=== PATIENT | female | born 1990 | race Caucasian/White ===

== ENCOUNTER 2017-01-26 21:16 | Emergency (ER) | payer MEDICAID ==
[2017-01-26 21:21] VITALS: RESP 18; TEMP 99
[2017-01-26 21:57] LABS: PLATELET COUNT 172 10^3/uL (150-400)
--- NOTE | 2017-01-26 22:30 | EDPHY ---
H & P Stated Complaint: DX WITH UTI ON ABX 3 DAYS NOT BETTER - Personal History LMP (Females 10-55): 8-14 Days Ago Current Tetanus/Diphtheria Vaccine: Unsure Current Tetanus Diphtheria and Acellular Pertussis (TDAP): Unsure - Medical/Surgical History Hx Asthma: No Hx Chronic Respiratory Disease: No Hx Diabetes: No Hx Cardiac Disease: No Hx Renal Disease: No Hx Cirrhosis: No Hx Alcoholism: No Hx HIV/AIDS: No Hx Splenectomy or Spleen Trauma: No Other PMH: lyme disease, - Social History Smoking Status: Never smoked <Edison Bhatia - Last Filed: 01/26/17 22:47> <Rajwinder Hernandez - Last Filed: 01/27/17 05:08> Time Seen by Provider: 01/26/17 21:26 HPI/ROS: Chief Complaint: Abdominal pain HPI: 26-year-old was diagnosed with urinary tract infection by her OBGYN 2 days ago. She was started on nitrofurantoin for this. She was diagnosed with symptoms of urinary urgency and frequency. Yesterday she started having worsening generalized abdominal pain with occasional sharp stabbing pains. The pain got worse today and is now worse in the lower abdomen. No nausea or vomiting. No diarrhea. No fevers or chills. Last menstrual period was 2 weeks ago. She does not believe she is . She has never been in the past. No history of sexually transmitted infections in the past. She has not had any constipation. No abnormal vaginal discharge. ROS: 10 point Review of Systems is negative except as noted in the HPI. PMH: None Social History: No smoking, occasional alcohol, occasional cannabinoids Family History: non-contributory Physical Exam: Gen: Awake, Alert, No Distress HEENT: Nose: no rhinorrhea Eyes: PERRLA, EOMI Mouth: Moist mucosa Neck: Supple, no JVD Chest: nontender, lungs clear to auscultation Heart: S1, S2 normal, no murmur Abd: Soft, moderate right lower quadrant tenderness with guarding, no rebound, no adnexal tenderness bilaterally, Back: no CVA tenderness, no midline tenderness Ext: no edema, non-tender Skin: no rash Neuro: CN II-XII intact, Sensation grossly intact, Strength 5/5 in bilateral upper and lower extremities (Edison Bhatia) Constitutional: Initial Vital Signs Temperature (C) 37.2 C 01/26/17 21:19 Heart Rate 97 01/26/17 21:19 Respiratory Rate 18 01/26/17 21:19 Blood Pressure 96/62 L 01/26/17 21:19 O2 Sat (%) 98 01/26/17 21:19 O2 Delivery Mode Room Air Allergies/Adverse Reactions: No Known Allergies Allergy (Verified 01/26/17 21:21) Home Medications: Medication Instructions Recorded Nitrofurantoin Monohyd/M-Cryst 100 mg PO 01/26/17 [Macrobid 100 mg Capsule] Urine Leukocyte Test Strips [Azo] 1 each MC 01/26/17 Medical Decision Making <Edison Bhatia - Last Filed: 01/26/17 22:47> - Diagnostics Imaging: Discussed imaging studies w/ call or contact centre team leader Radiologist <Rajwinder Hernandez - Last Filed: 01/27/17 05:08> - Diagnostics Imaging Results: Imaging Impressions Abdomen Ultrasound 01/26/17 22:05 Impression: Normal appendix. Small amount of nonspecific right lower quadrant free fluid. Results called to Dr. Bhatia. Pelvic/Renal Ultrasound 01/26/17 22:05 Impression: 1. Small amount of nonspecific pelvic free fluid. 2. No evidence for ovarian torsion. Results discussed with Dr. Hernandez at 11:28 pm. ED Course/Re-evaluation: 26-year-old female diagnosed with UTI 2 days ago now with abdominal pain and tenderness right lower abdomen. Will check blood work, repeat urine, test, will obtain an ultrasound to evaluate for possible appendicitis or ovarian cyst or torsion. 2300 Patient signed out to Dr. Hernandez pending ultrasound results. (Edison Bhatia) I followed up the patient's ultrasound results which did show trace amount of free fluid in the pelvis with no other findings. Appendix is normal. Lab test relatively unremarkable, UA does show evidence of urinary tract infection. Patient is taking Bactrim currently and I have advised her to continue this for now. I would not expect complete resolution after 2 days of Bactrim use. She is feeling better currently and her abdominal exam is benign. She will be discharged home. (Rajwinder Hernandez) - Data Points Laboratory Results: Laboratory Results 01/26/17 21:49 01/26/17 21:49 01/26/17 01/26/17 01/26/17 23:41 21:49 21:49 WBC RBC Hgb Hct MCV MCH MCHC RDW Plt Count MPV Neut % (Auto) Lymph % (Auto) [place] % (Auto) Eos % (Auto) Baso % (Auto) Nucleat RBC Rel Count Absolute Neuts (auto) Absolute Lymphs (auto) Absolute Monos (auto) Absolute Eos (auto) Absolute Basos (auto) Absolute Nucleated RBC Immature Gran % Immature Gran # Sodium 139 mEq/L mEq/L (134-144) Potassium 3.7 mEq/L mEq/L (3.5-5.2) Chloride 104 mEq/L mEq/L (97-110) Carbon Dioxide 23 mEq/l mEq/l (22-31) Anion Gap 12 mEq/L mEq/L (8-16) BUN 12 mg/dL mg/dL (7-23) Creatinine 0.8 mg/dL mg/dL (0.6-1.0) Estimated GFR > 60 Glucose 85 mg/dL mg/dL (70-100) Calcium 9.3 mg/dL mg/dL (8.5-10.4) Total Bilirubin 0.3 mg/dL mg/dL (0.1-1.4) AST 20 IU/L IU/L (14-46) ALT 24 IU/L IU/L (9-52) Alkaline Phosphatase 57 IU/L IU/L (38-126) Total Protein 6.1 g/dL L g/dL (6.3-8.2) Albumin 3.8 g/dL g/dL (3.5-5.0) Lipase 131 IU/L IU/L (23-300) Beta HCG, Qual NEGATIVE Urine Color LEMUEL Urine Appearance CLEAR Urine pH 6.0 (5.0-7.5) Ur Specific [place] 1.005 (1.002-1.030) Urine Protein NEGATIVE (NEGATIVE) Urine Ketones NEGATIVE (NEGATIVE) Urine Blood NEGATIVE (NEGATIVE) Urine Nitrate POSITIVE H (NEGATIVE) Urine Bilirubin NEGATIVE (NEGATIVE) Urine Urobilinogen 4.0 EU H EU (0.2-1.0) Ur Leukocyte Esterase NEGATIVE (NEGATIVE) Urine RBC 25-50 /hpf H /hpf (0-3) Urine WBC 1-3 /hpf /hpf (0-3) Ur Epithelial Cells Not Reported Urine Bacteria TRACE /hpf H /hpf (NONE SEEN) Urine Mucus TRACE /lpf /lpf (NONE-1+) Urine Glucose NEGATIVE (NEGATIVE) 01/26/17 21:49 WBC 7.24 10^3/uL 10^3/uL (3.80-9.50) RBC 4.63 10^6/uL 10^6/uL (4.18-5.33) Hgb 14.5 g/dL g/dL (12.6-16.3) Hct 40.8 % % (38.0-47.0) MCV 88.1 fL fL (81.5-99.8) MCH 31.3 pg pg (27.9-34.1) MCHC 35.5 g/dL g/dL (32.4-36.7) RDW 11.9 % % (11.5-15.2) Plt Count 172 10^3/uL 10^3/uL (150-400) MPV 10.1 fL fL (8.7-11.7) Neut % (Auto) 56.1 % % (39.3-74.2) Lymph % (Auto) 32.7 % % (15.0-45.0) [place] % (Auto) 8.0 % % (4.5-13.0) Eos % (Auto) 2.2 % % (0.6-7.6) Baso % (Auto) 0.7 % % (0.3-1.7) Nucleat RBC Rel Count 0.0 % % (0.0-0.2) Absolute Neuts (auto) 4.06 10^3/uL 10^3/uL (1.70-6.50) Absolute Lymphs (auto) 2.37 10^3/uL 10^3/uL (1.00-3.00) Absolute Monos (auto) 0.58 10^3/uL 10^3/uL (0.30-0.80) Absolute Eos (auto) 0.16 10^3/uL 10^3/uL (0.03-0.40) Absolute Basos (auto) 0.05 10^3/uL 10^3/uL (0.02-0.10) Absolute Nucleated RBC 0.00 10^3/uL 10^3/uL (0-0.01) Immature Gran % 0.3 % % (0.0-1.1) Immature Gran # 0.02 10^3/uL 10^3/uL (0.00-0.10) Sodium Potassium Chloride Carbon Dioxide Anion Gap BUN Creatinine Estimated GFR Glucose Calcium Total Bilirubin AST ALT Alkaline Phosphatase Total Protein Albumin Lipase Beta HCG, Qual Urine Color Urine Appearance Urine pH Ur Specific [place] Urine Protein Urine Ketones Urine Blood Urine Nitrate Urine Bilirubin Urine Urobilinogen Ur Leukocyte Esterase Urine RBC Urine WBC Ur Epithelial Cells Urine Bacteria Urine Mucus Urine Glucose Departure <Edison Bhatia - Last Filed: 01/26/17 22:47> <Rajwinder Hernandez - Last Filed: 01/27/17 05:08> - Departure Disposition: Home, Routine, Self-Care Clinical Impression: Right lower quadrant abdominal pain UTI (urinary tract infection) Qualifiers: Urinary tract infection type: acute cystitis Hematuria presence: without hematuria Qualified Code(s): N30.00 - Acute cystitis without hematuria Condition: Good Instructions: Urinary Tract Infection in Women (ED), Acute Abdominal Pain (ED) Additional Instructions: Please make sure to drink plenty of fluids. You can take ibuprofen 400 mg or acetaminophen 650 mg every 6 hr as needed for pain. Return to the emergency department if your worse in any way. Referrals: NONE *PRIMARY CARE P,. [Primary Care Provider] - As per Instructions
[2017-01-27 00:32] VITALS: BP 95/62; PULSE 74; O2SAT 97
== END 2017-01-27 00:32 | disposition home or self-care (01) ==
DX: N30.00 Acute cystitis without hematuria (principal); B96.89 Other specified bacterial agents as the cause of diseases classified elsewhere